=== PATIENT | female | born 1970 | race Caucasian/White ===

== ENCOUNTER 2017-01-17 15:04 | Day surgery (SDC) | payer OTHER ==
[~2017-01-17] VITALS: Ht 167.6 cm; Wt 142.3 kg
[~2017-01-17 15:04] MED LIST: BECL8.7A6 INHALATION; HYDR-3740 PO; IBUP800T28 PO; LISI-567 PO; LOVA20TA PO; Lactated Ringer's 1,000 ML IV ONE; METH500T PO; OMEP20CA11 PO; PREG75CA PO; TIOT18CA3 IH
[2017-01-17] MEDS ORDERED: fentaNYL-PF 50 mCg/mL 2 mL Inj ONE (15:05)
[2017-01-17] MEDS ORDERED: Propofol 10,000 mCg/mL 20 mL Inj ONE (15:05)
[2017-01-17 16:03] VITALS: BP 172/104; PULSE 73; RESP 16; O2SAT 99
--- NOTE | 2017-01-17 16:15 | PCM.HPANE ---
Patient Data Surgeon Admitting Provider: Attending Provider:Mikel Leonard MD Primary Care Physician:Other,Physician Other Provider:Betzaida Fang Anesthesia Reason for Visit GERD Ht/WT & BMI Body Mass Index Allergies Coded Allergies: morphine (Verified Allergy, Mild, NIGHTMARES, 01/16/17) celecoxib (Verified Allergy, Unknown, 01/16/17) codeine (Verified Allergy, Unknown, 01/16/17) doxylamine (Verified Allergy, Unknown, 01/16/17) Past Anesthesia History Anesthesia History: Denies:: Abnormal Airway, Anesthesia Reactions, Difficult Intubation, Fam Anesthesia Reaction, Fam Malignant Hypertherm, Malignant Hyperthermia MRSA MRSA: No Medications Home Meds Incl Beta Avery: No Reported Medications Tiotropium [place] (Spiriva)18 Mcg Cap.w.dev18 Mcg IH DAILY #1 PKG Ref 0 01/16/17 Methocarbamol (Robaxin)500 Mg Tablet1,000 Mg PO QID 01/16/17 Beclomethasone Dipropionate (Qvar)8.7 Gm Aer.w.adap2 Puff INHALATION BID #8.7 GM 01/16/17 Omeprazole 20 Mg Capsule.dr20 Mg PO DAILY Ref 0 01/16/17 Pregabalin (Lyrica)75 Mg Kfujcul04 Mg PO BID 30 Days Ref 0 01/16/17 Lovastatin 20 Mg Wybbso11 Mg PO HS #30 TABLET Ref 0 01/16/17 Lisinopril 20 Mg Rjebaz24 Mg PO DAILY 30 Days Ref 0 01/16/17 Hydrocodone-Acetaminophen 10-325 mg 1 Each Tablet1 Tablet PO Q4-6H PRN For Pain Ref 0 01/16/17 Discontinued Reported Medications Ibuprofen 800 Mg Uvarnf298 Mg PO TIDWM PRN For Pain Ref 0 01/16/17 History HEENT History: Positive for:: Dysphagia Denies:: Abnormal Airway Difficult Intubation Hearing Problem Teeth Condition: No Teeth Hx of Heart Problems?: Yes Cardiovascular History: Positive for:: Hypertension Denies:: AICD Atrial Fibrillation Chest Pain Pacemaker Valvular Heart Disease Hx of Respiratory Problem?: Yes Respiratory History: Positive for:: COPD Denies:: Asthma Cough Hemoptysis Tuberculosis Neurological History: Denies:: CVA Hx of GI Problems?: Yes Gastrointestinal History: Positive for:: Gastroesphageal Reflux Denies:: Cirrhosis Diverticulitis Gall Bladder Disease Hiatal Hernia Liver Disease Rectal Bleeding Musculoskeletal History: Denies:: Fibromyalgia Joint Replacement Psycho Social History: Positive for:: Anxiety Denies:: Hx Depression Hx Surgeries?: Yes (BILAT KNEE, L3-S1 LAMI/DECOMP, TONSIL, ) Hx Any Other Health Problems?: Yes Hx Alcohol Use: No Stop/Bang Treated for Sleep Apnea?: Yes (CURRENTLY BEING TESTED) Do You Have a CPAP Machine?: No S-Snoring: Do You Snore Loudly: No T-Tired: feel tired, fatigued: Yes O-Obsered: Observed not breath: Yes P-Blood Pressure: treated: Yes B- Body Mass Index > 35 kg/m2: Yes A- Age over 50: No N- Neck Large Circumference: Yes G- Gender Male: No PILLO Total Score: 5 PILLO Risk Assessment: High Risk, =/>3 Yes PILLO Category 2: Yes Risk Assessment Category Category 1A: Patient has history of documented sleep apnea, and HAS NOT received any narcotic, sedative or anesthesia administration during this stay. Category 1B: Patient has history of documented sleep apnea, and HAS received any narcotic , sedative or anesthesia administration during this stay Category 2: Patient has SUSPECTED Obstructive Sleep Apnea, and HAS received any narcotic , sedative or anesthesia administration during this stay. Category 3: Patient has SUSPECTED Obstructive Sleep Apnea and HAS NOT received narcotic, sedative or anesthesia administration during this stay. Category 4: Outpatient in Procedural Areas with known sleep apnea or who screen positive for High Risk via the STOP/BANG questionnaire. Exam Exam Vital Signs Vital Signs Date Time Temp Pulse Resp B/P Pulse Ox O2 Delivery O2 Flow Rate FiO2 01/17/17 16:03 36.6 73 16 172/104 99 Room Air General Appearance: Alert, Oriented X3, Cooperative, No Acute Distress HEENT/AIRWAY: MP 4, Neck Movement Lungs: Clear to Auscultation, Normal Air Movement Heart: Exam Unremarkable, Regular Rate/Rhythm, No Murmurs/Rubs/Gallops Plan Impression Patient chart reviewed, patient interviewed and anesthestic plan with risks, benefits, and alternatives discussed, and informed consent obtained. ASA Physical Status: ASA3 Severe Disease Anesthetic Plan: MAC Bene/Risks/Altern/Consents: Yes HP Complete Prior to Induction: Yes Antelmo Carvalho MD Jan 17, 2017 16:15
[2017-01-17] MEDS ORDERED: Lactated Ringer's 1,000 ML IV SCH (16:39)
[2017-01-17] MEDS ORDERED: MetoCLOpramide 5 mg/mL 2 mL Inj IVPUSH PRN (16:40)
[2017-01-17] MEDS ORDERED: Ondansetron 2 mg/mL 2 mL Inj IVPUSH PRN (16:40)
[2017-01-17 16:59] VITALS: BP 148/107; PULSE 73; RESP 18; O2SAT 100
--- NOTE | 2017-01-17 17:04 | PCM.ANEP1 ---
Post Anesthesia Phase 1 PACU Phase 1 Assessment Vital Signs Vital Signs Date Time Temp Pulse Resp B/P Pulse Ox O2 Delivery O2 Flow Rate FiO2 01/17/17 16:59 35.9 73 18 148/107 100 Room Air 01/17/17 16:03 36.6 73 16 172/104 99 Room Air Anesthetic Administered: MAC Level of Alertness: Awake, talking TOMLINSON's with Equal Strength: Yes Pain: No Nausea or Vomiting: No Oxygen Delivery: Room Air Lungs: Clear to Auscultation, Normal Air Movement Dermatome Level: Full Sensation Antelmo Carvalho MD Jan 17, 2017 17:04
--- NOTE | 2017-01-17 17:07 | PCM.ANEP2 ---
Post Anesthesia Evaluation ASA/CMS Post Anesthesia VS in Patient's Normal Range?: Yes Resp Stable; Airway Patent?: Yes CV Function & Hydration Stable: Yes Mental Status Recovered?: Yes Pain control Satisfactory?: Yes N/V Control Satisfactory?: Yes Antelmo Carvalho MD Jan 17, 2017 17:07
[2017-01-17 17:11] VITALS: BP 171/92; PULSE 62; RESP 16; O2SAT 100
--- NOTE | 2017-01-17 19:05 | ENDO ---
[address] [address] ENDOSCOPY PROCEDURE PATIENT: JANA DUENAS : 1970 MR#: [id number] ADMIT: 01/17/2017 JOB ID: [id number] PROCEDURE: Esophagogastroduodenoscopy with biopsy. INDICATIONS: A 46-year-old female with multiple major medical comorbidities, who has been experiencing some intermittent dysphagia to liquids and solids and has a lengthy history of reflux. She has clinically improved after re-initiation of proton pump inhibitor. She still reports that she can have difficulty with swallowing. EGD is therefore pursued. EQUIPMENT: [id number]. SEDATION: Monitored anesthesia is provided by Dr. Antelmo Carvalho. COMPLICATIONS: None identified. PROCEDURE INFORMATION: After the risks and benefits were explained, written and verbal informed consent was obtained, the patient was brought into the endoscopy suite and placed into the left lateral decubitus position. Sedation was achieved using the above-stated medications with the addition of oxygen via nasal cannula. The scope was introduced into the mouth through the bite block and advanced to the second portion of the duodenum. The scope was slowly withdrawn to carefully examine the mucosa for any defects or lesions. Retroflexed views were accomplished in the stomach. The stomach was decompressed. The scope removed from the patient who tolerated the procedure well. FINDINGS: 1. Duodenum: No pathology identified from the bulb through to the second portion. 2. Stomach: No outlet obstruction. The patient had a few scattered erosive changes and a small bland-based, approximately 4 mm ulcer with surrounding mucosal irritation. This is probably from her regular daily ibuprofen consumption. I, however, did take a biopsy from the edge of this ulcer for exclusion of Helicobacter or other underlying histopathology. Retroflexed views of the LES were otherwise unremarkable. 3. Esophagus: The squamocolumnar junction correlated generally with the top of the gastric folds. GEJ was at about 41 cm from the incisors. I did not see any acute erosive changes. No strictures. No mass lesions. No obstructing pathology appreciated throughout. ENDOSCOPIC DIAGNOSIS: 1. Subtle sliding hiatal hernia (not mentioned above). 2. Small gastric ulcer. RECOMMENDATIONS: 1. Await histopathology. 2. If Helicobacter is found, it will need to be eradicated with standard triple therapy. 3. Minimize nonsteroidal anti-inflammatory medications. 4. Continue Prilosec but I would recommend twice daily therapy and then follow up in the office to determine clinical effect. 5. If dysphagia symptoms persist in spite of adequate control of the reflux component, then further evaluation with pH and manometry would be appropriate. CC: SHAGGY Sehikh.
--- NOTE | 2017-01-24 16:30 | PATH ---
SURGICAL PATHOLOGY Attending Physician:Zulema Izquierdo CASE STATUS: Signed Out * Amended * PATIENT NAME: JANA DUENAS PID: [id number] : 1970 DATE COLLECTED:01/17/2017 00:00 SPECIMEN: Gastric, Biopsy CLINICAL HISTORY: GERD 1). GASTRIC ULCER BIOPSY FINAL DIAGNOSIS: Gastric Ulcer Biopsy: Histologic features of reactive gastropathy. Negative for H. pylori organisms by immunohistochemistry studies. No region of ulceration identified. ICD10 K29.7 This case was reviewed and interpreted by Dr. Kim Neal. The final diagnosis is unchanged. This amendment is issued in order for the report to cross the interface and be available in the hospital electronic medical record. GROSS DESCRIPTION: The specimen is received in one formalin filled container labeled with the patient's name, sublabeled "gastric ulcer" and consists of a 0.3 x 0.3 x 0.3 CM portion of tissue which is entirely submitted in one cassette. 01/18/2017 [facility] MICRO DESCRIPTION: IMMUNOHISTOCHEMISTRY: Block 1A: H. pylori: Negative. ICD-9 CODES: CPT CODES: 1: 90164, 28056 AMENDMENT(S): Amended: 01/24/2017 by Linda Luciano Reason:Miscellaneous The final diagnosis is unchanged. This amendment is issued in order for the report to cross the interface and be available in the hospital electronic medical record. Previous Signout Date: 01/20/2017 Electronically Signed Out Antonieta Mclean MD [facility] Pathology [facility] [address], [place] [address] Technical component performed at [facility], [address] [place] [address] [address], [place], [address]
== END 2017-01-17 23:59 | disposition home or self-care (01) ==
LOC: END 15:04
PROVIDERS: ATTEND Internal Medicine Gastroenterology
DX: K29.70 Gastritis, unspecified, without bleeding (principal); K25.9 Gastric ulcer, unspecified as acute or chronic, without hemorrhage or perforation; K44.9 Diaphragmatic hernia without obstruction or gangrene; R13.10 Dysphagia, unspecified; I10 Essential (primary) hypertension; F41.9 Anxiety disorder, unspecified; J44.9 Chronic obstructive pulmonary disease, unspecified; F17.210 Nicotine dependence, cigarettes, uncomplicated; G47.33 Obstructive sleep apnea (adult) (pediatric); E66.01 Morbid (severe) obesity due to excess calories; Z79.1 Long term (current) use of non-steroidal anti-inflammatories (NSAID); Z79.891 Long term (current) use of opiate analgesic; Z68.43 Body mass index [BMI] 50.0-59.9, adult
CPT/HCPCS: 43239; 88305; 88342; J2250; J3010; J7120